=== PATIENT | male | born 1990 ===

== ENCOUNTER 2019-09-22 04:06 | Emergency (ER) | payer SELFPAY | END 2019-09-22 04:19 | disposition home or self-care (01) | LOC: ERS 04:06 | DX: J02.9 Acute pharyngitis, unspecified (principal) | CPT/HCPCS: 99281 ==

== ENCOUNTER 2023-06-18 12:36 | Inpatient (IN) | payer OTHER, SELFPAY ==
[2023-06-18] MEDS ORDERED: Ibuprofen 800 MG TAB ONE (14:21)
[2023-06-18] MEDS ORDERED: Morphine 4 MG/ML VIAL ONE (15:27)
[2023-06-18] MEDS ORDERED: Ondansetron PF 4 MG/2 ML Vial ONE (15:27)
[2023-06-18 21:42] VITALS: BMI 29.7
[2023-06-19 09:07] VITALS: BP 134/77
[2023-06-19 11:11] VITALS: TEMP 97.4
== END 2023-06-19 11:05 | DRG 563 ==
LOC: ERS 12:36 → EEVIPCON 12:36 → ERHOLD 15:07
PROVIDERS: ADMIT Orthopaedic Surgery; ATTEND Orthopaedic Surgery
DX: S43.005A Unspecified dislocation of left shoulder joint, initial encounter (principal); Z79.899 Other long term (current) drug therapy
CPT/HCPCS: 96374; 96375; J2270; J2405